=== PATIENT | male | born 1955 | race Caucasian/White ===

== ENCOUNTER 2022-06-02 16:17 | Emergency (ER) | payer OTHER ==
[~2022-06-02] VITALS: Ht 182.9 cm; Wt 94.3 kg
--- NOTE | 2022-06-02 17:25 | NUR ---
Patient out of unit for ct scan via [place].
--- NOTE | 2022-06-02 18:45 | NUR ---
Patient discharged to home in stable condition. Written and verbal after care instructions given. Patient verbalizes understanding of instructions. Stressed follow up or return to ER for worsening s/s.
[2022-06-02 18:46] VITALS: BP 120/87
== END 2022-06-02 18:50 | disposition home or self-care (01) ==
LOC: ER 16:17
DX: S09.90XA Unspecified injury of head, initial encounter (principal); S30.811A Abrasion of abdominal wall, initial encounter; S00.81XA Abrasion of other part of head, initial encounter; S00.31XA Abrasion of nose, initial encounter; S29.011A Strain of muscle and tendon of front wall of thorax, initial encounter; Y92.89 Other specified places as the place of occurrence of the external cause; W01.0XXA Fall on same level from slipping, tripping and stumbling without subsequent striking against object, initial encounter; M25.511 Pain in right shoulder; I25.10 Atherosclerotic heart disease of native coronary artery without angina pectoris; Z95.5 Presence of coronary angioplasty implant and graft; I10 Essential (primary) hypertension; Z79.02 Long term (current) use of antithrombotics/antiplatelets; Z94.0 Kidney transplant status
CPT/HCPCS: 70450; 71045; A4663